=== PATIENT | female | born 1990 | race Hispanic/Latino ===

== ENCOUNTER 2021-01-23 23:15 | Observation (INO) | payer MEDICAID ==
[~2021-01-23] VITALS: Ht 162.6 cm; Wt 74.8 kg
[2021-01-23 23:49] LABS: APPEARANCE,URINE Cloudy (CLEAR); BILIRUBIN,URINE Negative (NEGATIVE); COLOR,URINE Yellow (YELLOW); GLUCOSE, URINE (UA) Negative (NEGATIVE); KETONES,URINE Negative (NEGATIVE); LEUKOCYTE ESTERASE ,URINE Large (NEGATIVE); NITRATE,URINE Negative (NEGATIVE); OCCULT BLOOD,URINE Negative (NEGATIVE); PROTEIN,URINE Negative (NEGATIVE); UROBILINOGEN,URINE 0.2 mg/dL (0.2-1.0)
[2021-01-23 23:56] LABS: AMPHET/METH SCREEN,URINE NEGATIVE (NEGATIVE); BARBITURATE SCREEN, URINE NEGATIVE (NEGATIVE); BENZODIAZEPINES SCREEN,URINE NEGATIVE (NEGATIVE); CANNABINOID SCREEN,URINE NEGATIVE (NEGATIVE); COCAINE SCREEN,URINE NEGATIVE (NEGATIVE); OPIATE SCREEN,URINE NEGATIVE (NEGATIVE); PHENCYCLIDINE SCREEN,URINE NEGATIVE (NEGATIVE)
[2021-01-23 23:57] LABS: BACTERIA,URINE Few /HPF (None Seen); RBC,URINE 0-1 /HPF (0-1)
[2021-01-23 23:58] LABS: SQUAMOUS EPITHELIAL CELL,UR Moderate /HPF (0-2)
[2021-01-24] MEDS ORDERED: LACTATED RINGERS 1000ML 1,000 ML IV SCH
[2021-01-24] MEDS ORDERED: LACTATED RINGERS 1000ML IV ONE
[2021-01-24] MEDS ORDERED: CITRIC ACID/SODIUM CITRATE 30 ML UDCUP PO SCH
[2021-01-24] MEDS ORDERED: ACETAMINOPHEN 500 MG TABLET PO ONE
[2021-01-24 00:39] LABS: BASOPHILS % (AUTO) 0.5 % (0.0-5.0); EOSINOPHILS % (AUTO) 1.1 % (0.0-8.0); HEMATOCRIT 33.9 % (36-48); LYMPHOCYTES % (AUTO) 17.3 % (21.0-51.0); MEAN CORPUSCULAR HEMOGLOBIN 30.6 pg (27.0-33.0); MEAN CORPUSCULAR HGB CONC 33.3 g/dL (32.0-36.0); MEAN CORPUSCULAR VOLUME 91.9 fL (79-99); MONOCYTES % (AUTO) 8.1 % (3.0-13.0); NEUTROPHILS % (AUTO) 70.9 % (40.0-77.0); PLATELET COUNT (AUTO) 219 K/uL (130-400); RED BLOOD CELL COUNT(AUTO) 3.69 MIL/uL (4.00-5.50); RED CELL DISTRIBUTION WIDTH 12.5 % (11.0-15.5); WHITE BLOOD COUNT (AUTO) 12.1 K/uL (4.8-10.8)
[2021-01-24 00:47] LABS: CREATININE 0.6 mg/dL (0.5-1.5); POTASSIUM 3.6 mmol/L (3.5-5.1)
[2021-01-24 00:49] LABS: PROTHROMBIN TIME 10.9 SEC (9.6-11.6)
[2021-01-24 00:50] LABS: PARTIAL THROMBOPLASTIN TIME 26.8 SEC (26.3-35.5)
[2021-01-24 00:53] LABS: ALBUMIN 2.8 g/dL (3.5-5.0); BILIRUBIN,TOTAL 0.3 mg/dL (0.2-1.0); TOTAL PROTEIN, SERUM 7.1 g/dL (6.0-8.3); URIC ACID 2.9 mg/dL (2.6-7.2)
[2021-01-24] MEDS ORDERED: [UNRECOGNIZED DRUG - CODE] VG (01:25)
[2021-01-24] MEDS ORDERED: PREN1TAB80 PO (01:25)
[2021-01-24] MEDS ORDERED: ASPI-1443 PO (01:25)
[2021-01-24 01:27] VITALS: BP 120/78
[2021-01-24] MEDS ORDERED: PROMETHAZINE HCL 25 MG/ML 1ML AMPULE IM ONE (02:30)
[2021-01-24] MEDS ORDERED: MORPHINE 4 MG SYG IM ONE (02:30)
== END 2021-01-24 07:40 | disposition home or self-care (01) ==
LOC: EDH 23:15 → LDH 23:36
PROVIDERS: ADMIT Obstetrics & Gynecology; ATTEND Obstetrics & Gynecology
DX: O99.891 Other specified diseases and conditions complicating pregnancy (principal); M54.9 Dorsalgia, unspecified; R10.13 Epigastric pain; R10.10 Upper abdominal pain, unspecified; Z3A.29 29 weeks gestation of pregnancy; Z79.899 Other long term (current) drug therapy; Z98.890 Other specified postprocedural states
CPT/HCPCS: 36415; 59025; 76705; 80053; 80305; 81001; 82150; 83690; 84550; 85025; 85384; 85610; 85730; 87088; 96360; 96361; 96372; G0378 ×8; G0379; J2270; J2550; J7120

== ENCOUNTER 2024-07-26 05:51 | Emergency (ER) | payer SELFPAY ==
[~2024-07-26] VITALS: Ht 162.6 cm; Wt 54.4 kg
[~2024-07-26 05:51] MED LIST: PREN1TAB80 PO
--- NOTE | 2024-07-26 06:29 | NUR ---
PATIENT IN RESTROOM TRYING TO OBTAIN A URINE SAMPLE FOR LAB.
[2024-07-26 06:45] LABS: APPEARANCE,URINE CLEAR (CLEAR); BILIRUBIN,URINE NEGATIVE (NEGATIVE); COLOR,URINE COLORLESS (YELLOW); GLUCOSE, URINE (UA) NEGATIVE (NEGATIVE); KETONES,URINE NEGATIVE (NEGATIVE); LEUKOCYTE ESTERASE ,URINE NEGATIVE Leu/uL (NEGATIVE); NITRATE,URINE NEGATIVE (NEGATIVE); OCCULT BLOOD,URINE LARGE (NEGATIVE); PROTEIN,URINE NEGATIVE (NEGATIVE); UROBILINOGEN,URINE 0.2 mg/dL (0.2-1.0)
[2024-07-26 06:46] LABS: ADD UA MICROSCOPIC NO
--- NOTE | 2024-07-26 06:53 | ERN ---
ED Note History of Present Illness Stated Complaint: " INFECTION AND DEHYDRATION" Chief Complaint: Multiple Complaints Time Seen by MD: 05:57 Dictation: This is a 33-year-old female who presented to the emergency room stating that she had an infection and dehydration. Apparently patient had a right front tooth pain and she was evaluated in [place] where she underwent a root canal treatment on 07/22/2024. At the same time she was noted to have a UTI and labs apparently reveal dehydration and she was given antibiotic therapy for that when she returned she stated that she wanted to get checked out she also reports some fatigue. She also reports that she has had cramping of the hands and feels numb in the whole body. Temperature 97.8 pulse 63 respirations 18 blood pressure 167/97 with a pulse oximetry of 100% on room air Allergies: Coded Allergies: No Known Drug Allergies (Unverified Allergy, Unknown, 12/15/14) Home Meds Reported Medications Vits W-Ca,Fe,FA(<1Mg) ( Vitamins) 1 Each Tablet, 1 EACH PO DAILYDINNER, TAB 01/24/21 Past Medical History Past Medical History: Hypertension Surgical History: Family History: Negative Social History: Negative LMP: Jul 25, 2024 : 4 Para: 3 Aborts: 1 RN Note Reviewed/Agreed w/PFSH: Yes Review of System Dictation Constitutional: Negative for fever,chills, and weight loss, generalized body weakness Eyes: Negative for injury, pain,redness, and discharge ENT: Negative for injury,pain or swelling Cardiovascular: Negative for chest pain, palpitations, and edema Respiratory: Negative for shortness of breath, cough, and wheezing, Abdomen/GI: Negative for abdominal pain, nausea, vomiting, diarrhea, and constipation Back: Negative for injury and pain : Negative for injury, bleeding and discharge MS/Extremity: Negative for injury and deformity Skin: Negative for rash, and discoloration Neuro: Negative for headache, weakness, numbness, tingling, and seizure Psych: Negative for suicide ideation, homicidal ideation, and hallucinations Initial Vital Sign VS Vital Signs Date Time Temp Pulse Resp B/P (MAP) Pulse Ox O2 Delivery O2 Flow Rate FiO2 07/26/24 05:52 97.9 63 18 167/97 100 Room Air Physical Exam Dictation General: awake, alert, NAD Head/Face: Normocephalic, atraumatic Eyes: PERRL, EOMI, vision at baseline ENT: oral cavity clear, TMs clear, no signs of infection Neck: Trachea midline, supple, no nuchal rigidity Cardiovascular: RRR, normal S1/S2, No MRGs, no JVD Respiratory: CTAB, no respiratory distress, No rales or wheezes Abdomen: Soft, non-tender, non-distended, normal bowel sounds, no guarding or rebound. Skin: Warm, dry, normal turgor, no rash MS/Extremity: Pulses equal, no cyanosis, neurovascular intact, FROM Neuro: COAx4, GCS 15, strength 5/5, CN 2-12 intact, normal cerebellar exam, normal gait, Psych: Normal behavior, mood, and affect normal Extremities-trace edema without any palpable cords, Homans sign is negative Results (Laboratory/Radiology) Laboratory/Radiology Laboratory Tests Test 07/26/24 06:36 Urine Color COLORLESS (YELLOW) Urine Appearance CLEAR (CLEAR) Urine pH 6.0 (5.0-8.0) Urine Specific [place] 1.005 (1.001-1.031) Urine Protein NEGATIVE mg/dL (NEGATIVE) Urine Glucose (UA) NEGATIVE mg/dL (NEGATIVE) Urine Ketones NEGATIVE mg/dL (NEGATIVE) Urine Occult Blood LARGE (NEGATIVE) H Urine Nitrate NEGATIVE (NEGATIVE) Urine Bilirubin NEGATIVE mg/dL (NEGATIVE) Urine Urobilinogen 0.2 mg/dL (0.2-1.0) Urine Leukocyte Esterase NEGATIVE Vandana/uL Urine HCG, Qualitative NEGATIVE (NEGATIVE) Labs Reviewed?: Yes ED Course ED Course Orders Procedure Category Date Status Time Urinalysis Profile LAB 07/26/24 Complete 06: ,Urine Test LAB 07/26/24 Complete 06: Vital Signs Date Time Temp Pulse Resp B/P (MAP) Pulse Ox O2 Delivery O2 Flow Rate FiO2 07/26/24 05:52 97.9 63 18 167/97 100 Room Air We will perform diagnostic labs, and administer medications according to the patient's complaint. Once the results are available, will review and personally interpreted the labs to rule out any acute life-threatening emergency the trach require immediate intervention and treatment. I will then re-evaluate the patient after treatment and diagnostic exams have return to determine whether the patient requires any further testing, can safely be discharged home or need further admission to hospital for additional treatment and evaluation. Urinalysis is negative. Urine test is negative We will give gentle hydration and small amount of potassium repletion Medical Decision Making MDM MDM: Differential diagnosis: Recent root canal treatment, UTI, dehydration, fatigue Rationale: Tests considered and ordered secondary to shared decision making include: Previous outside records reviewed: Old ER visits. Risk of complication and/or morbidity or mortality of patient management: None Medications-Per medication reconciliation Need for hospitalization: Patient does not meet criteria for hospitalization. Need for emergency major/minor surgery: No There are no social concerns with this patient. Prescription drug management Prescriptions will include symptomatic care Patient's prior external medical records from other ER visits were reviewed by me as indicated. Prior testing and results from previous visits were reviewed. Prior tests were taken into account with medical decision making and resource utilization, independent historian/historians were used to obtain complete me dical history. I independently interpreted the test that were performed, results were reviewed by me and considered findings on radiology if ordered. Medical management and examination interpretation discussions were had by me with other qualified healthcare professionals as indicated for the patient's care. Problem List Problem List: (1) Tooth infection (2) Dehydration (3) UTI (urinary tract infection) DX & DISP Disposition: Discharge Departure Impression: Primary Impression: Tooth infection Additional Impressions: Dehydration, UTI (urinary tract infection) Condition: Stable Additional Instructions: Patient and the caregiver have been informed of all the diagnostic tests and the imaging conducted during the today's visit to the emergency room and has verbalized understanding of the results I have personally reviewed and interpreted all diagnostic exams performed here in the ER today as well as the vital signs documented by the nursing staff. The patient is now being discharged to home and should follow up with the primary care physician or the specialist as directed by the ER staff. Follow-up with primary care provider in 1 to 2 days. Take medications as directed here in the emergency room. Okay to continue home medications unless otherwise discussed during your visit in the emergency room today. Return to your nearest emergency room if symptoms worsen or if there is no improvement. Call 911 if you need immediate assistance. Take Tylenol or Motrin [id number] as needed and if no contraindications are present. Increase oral hydration. A wound culture or urine culture was ordered here in the emergency room department please follow-up with primary care provider and advise them to get repeat ports from our facility. If you had any J Carlos wrap/splints that were applied here, please do not remove them until you see your primary care or specialty. Referrals: SELF,REFERRAL (PCP) SHAI DELANEY MD Jul 26, 2024 06:53
[2024-07-26 06:54] LABS: HCG,QUALITATIVE URINE NEGATIVE (NEGATIVE)
[2024-07-26] MEDS: PoTASSium BIcarbonate/CIT AC 25 MEQ TABLET.EFF PO ONE (08:13)
[2024-07-26] MEDS: 0.9% NACL 500ML IV.SOLN 500 ML IV ONE (08:13)
[2024-07-26 09:19] VITALS: BP 126/79; PULSE 52; RESP 16; TEMP 98.7; O2SAT 100
== END 2024-07-26 09:35 | disposition home or self-care (01) ==
LOC: EDH 05:51
DX: K04.7 Periapical abscess without sinus (principal); E86.0 Dehydration; N39.0 Urinary tract infection, site not specified; I10 Essential (primary) hypertension; Z79.899 Other long term (current) drug therapy
CPT/HCPCS: 99283; 96360; 81003; 81025; J7040